=== PATIENT | female | born 1970 | race Caucasian/White ===

== ENCOUNTER 2024-02-16 11:45 | Emergency (ER) | payer OTHER, SELFPAY ==
[2024-02-16 11:47] VITALS: BP 142/106
--- NOTE | 2024-02-16 14:00 | ED.GENMED ---
History of Present Illness
<Nakita Peralta PA-C - Last Filed: 02/17/24 10:34>
General
Chief Complaint: Back Pain
Source: patient
Exam Limitations: none
Time Seen by Provider: 02/16/24 12:47
Nursing documentation reviewed up to this point in time: agreed with
History of Present Illness
History of Present Illness:
53-year-old female with a history of chronic back pain secondary to lumbar disc herniation seen on MRI last year with ongoing lower back pain which causes radiation into her legs and numbness of both feet chronically presents for acute worsening of
her back pain to the left SI joint region radiating down the back of her left leg ever since having an epidural injection last week 5 days ago. Patient says she has seen multiple specialist for her chronic back pain has not had relief with any
treatments like physical therapy, muscle relaxers, steroids, opiates including oxycodone/Tylenol 10�3 25 which she has taken previously. Patient said over the last couple of months she has had worsening of symptoms so she saw a different orthopedic
and received an epidural injection about 2 months ago. She says that that did not help her at all. She went for an appointment last week where she had another epidural but had told him that she had fallen in the days prior to that onto her
buttocks from standing on steps and hit her buttocks and back on the stairs. He did x-rays and showed no fractures. She at that point asked for an MRI which he apparently told her was not indicated at the time. Patient had a second epidural and
says that ever since then she has had worsening pain in her left SI joint down her leg limiting her mobility, limiting her ability to walk, having a lot of pain with changing motion and positions. She says she cannot get comfortable. She is here
both requesting imaging like an MRI to rule out a nerve injury from the epidural and also pain control although she says all pain medications do not help her. She says she has reached out to her Ortho um specialist with [facility] and cannot get
in touch with him but has spoken with the risk control officer who reached out to the doctor and did not offer any additional course of treatment but recommended that she see him in the office next week as already scheduled
She has not had a fever, chills, vomiting, abdominal pain, weakness in the leg, incontinence, urinary retention. Patient is able to get up and go to the bathroom and was able to walk into the emergency department
Past History
<Nakita Peralta PA-C - Last Filed: 02/17/24 10:34>
Past History
ED Past Medical History: HTN and Psychiatric (Anxiety)
ED Past Surgical History: Cholecystectomy, , Orthopedic (Foot surgery X 2, Right knee surgery) and Other (Hernia repair, Tummy tuck)
Social History
Tobacco: Non-smoker
Alcohol: None
Personal:
Living: with family
Employment: Employed
Family History
Family History: Adopted
Review of Systems
<Nakita Peralta PA-C - Last Filed: 02/17/24 10:34>
Review of Systems
Allergies reviewed?: Yes
All Other Systems: Not applicable
Phy Exam
<JT Leahy Last Filed: 02/17/24 10:34>
Physical Exam
Physical Exam:
GENERAL: Alert , in no apparent distress, comfortable at rest
HEAD: NCAT
CARDIAC: Regular rate and rhythm, no edema
LUNGS: Clear breath sounds bilaterally, no acute respiratory distress, no wheezes/rales/rhonchi
ABDOMEN: Soft, without focal tenderness, no r/g, no cvat, normal bowel sounds, nondistended
NEUROLOGICAL: Alert and oriented, no focal neuro deficits, CN intact, 5/5 strength, sensation intact, ambulation slight limp left leg
SKIN: Warm and dry, no skin chnages
MUSCULOSKELETAL: left SI joint tender, buttocks tender on L
full flexion and rotation intact
Back: No midline tenderness, mild dextroscoliosis, slight left paraspinal muscle tenderness on exam, no swelling
negative straight leg raise Bilaterally
PSYCH: Normal and appropriate interaction.
Course
<Nakita Peralta PA-C - Last Filed: 02/17/24 10:34>
Orders/Labs/Results
Orders:
Orders
02/16/24 14:32
Ketorolac [Toradol] 15 mg IV NOW STA
Lidocaine [Lidocaine 4% Patch] 1 patch TOPICAL NOW STA
Apply Lidocaine patch(s) to:: left SI low back
02/16/24 14:36
CT Lumbar Spine W/o Iv Contras Urgent
Comment:
Reason For Exam: severe tender left low back and SI following fall
02/16/24 14:45
Complete Blood Count/With Diff Urgent
Comprehensive Metabolic Panel Urgent
Sed Rate [Erythrocyte Sed Rate] Urgent
02/16/24 15:13
Gabapentin [Neurontin] 300 mg PO NOW STA
Abnormal Lab Results
02/16/24
14:45
Absolute Neuts (auto) 7.1 H 10^3/uL
(1.4-6.5)
Lymphocytes % 19.3 L %
(20.5-51.1)
Glucose 103 H mg/dl
(70-99)
02/16/24 14:45
02/16/24 14:45
Vital Signs
Initial and Last Documented VS:
Initial Vital Signs
Temp Pulse Resp BP
98.1 F 92 16 142/106
02/16/24 11:47 02/16/24 11:47 02/16/24 11:47 02/16/24 11:47
Last Documented Vital Signs
Temp Pulse Resp BP Pulse Ox
98.1 F 57 20 121/76 97
02/16/24 11:47 02/16/24 16:19 02/16/24 16:19 02/16/24 16:19 02/16/24 16:19
<Gaston Huntley DO - Last Filed: 02/16/24 15:13>
Orders/Labs/Results
Orders:
Orders
02/16/24 14:32
Ketorolac [Toradol] 15 mg IV NOW STA
Lidocaine [Lidocaine 4% Patch] 1 patch TOPICAL NOW STA
Apply Lidocaine patch(s) to:: left SI low back
02/16/24 14:36
CT Lumbar Spine W/o Iv Contras Urgent
Comment:
Reason For Exam: severe tender left low back and SI following fall
02/16/24 14:45
Complete Blood Count/With Diff Urgent
Comprehensive Metabolic Panel Urgent
Sed Rate [Erythrocyte Sed Rate] Urgent
02/16/24 15:13
Gabapentin [Neurontin] 300 mg PO NOW STA
Abnormal Lab Results
02/16/24
14:45
Absolute Neuts (auto) 7.1 H 10^3/uL
(1.4-6.5)
Lymphocytes % 19.3 L %
(20.5-51.1)
Glucose 103 H mg/dl
(70-99)
02/16/24 14:45
02/16/24 14:45
Vital Signs
Initial and Last Documented VS:
Initial Vital Signs
Temp Pulse Resp BP
98.1 F 92 16 142/106
02/16/24 11:47 02/16/24 11:47 02/16/24 11:47 02/16/24 11:47
Last Documented Vital Signs
Temp Pulse Resp BP Pulse Ox
98.1 F 57 20 121/76 97
02/16/24 11:47 02/16/24 16:19 02/16/24 16:19 02/16/24 16:19 02/16/24 16:19
<Nakita Peralta PA-C - Last Filed: 02/17/24 10:34>
MDM/Problems Addressed
Differential Diagnosis Includes:
sciatica, lumbar radiculopathy
MDM/Problems Addressed:
53 y/o F with h/o chronic back pain secondray to lumbar radiculopathy
here with acute on chronci pain
had epidural 5 days ago and says ever since then having L lumbar pain radiating into L leg more then befoer the injection
no foot drop, incontinence, retention, fever
she says she has called her speicalist dr. dailey with [facility] but was not able to directly speak with him
she is insistent on MRI imaging for this pain
on exam. afebrile
moves in the bed easily
neg straight leg raise
normal sensation
normal strength
no signs cuada equina
tender L si joint
pt was specifically requesint MRI
pt has no red flags to be concernd about need for urgent MRI (do not suspect discitis, cauda equina)
she requested to speak with ed physician who agreed to CT to r/o fracture sincep t recently fell as well as some screening labs
wbc normal
sed rate normal
ct shows lumbar disc disease/bulge no fx
WHEN COMPARING TO PT'S REPORT SHE HAD PULLED UP FROM LAST YEAR'S MRI, THIS ISEEMS VERY STABLE AND NO SIGNIFICANT CHANGES IDENTIFIED
i spoke directly with dr. dailey regarding this patient
he is aware nataly ther pain has been difficult to control, seemingly nothing really helps
no red flag new symptoms
he did not think this was complication from the epidural
reassured by imaging an dlabs
would at this point, recommend f/u with [facility] which is where he was goign to send her
but can be done as outpatient.
in meantime, i discussed gabapentin, and he agreed to start this as well as steroid burst
d/w ed attending 200 mg tid gabapentin
pt then said she wanted stronger dose but this was not encouraged and would recommend titrating up per her pcp or this ortho doctor.
<Nakita Peralta PA-C - Last Filed: 02/17/24 10:34>
*Critical Care Note
Total Time (30-74mins, 75-104mins- exclusive of procedures): Not Applicable
ED Attending Note
<Nakita Peralta PA-C - Last Filed: 02/17/24 10:34>
-
Portions of this chart may have been created with voice recognition software.� Occasional wrong word or��sound alike� substitutions may have occurred due to the inherent limitations of voice recognition software.
<Gaston Huntley DO - Last Filed: 02/16/24 15:13>
ED Attending Note
Patient seen and examined by attending physician: Yes
I performed the substantive portion of visit, reviewed & personally made and approve the management plan that is documented in note by myself or EWA.: Yes
ED Attending Note:
Patient is a 53-year-old female presents with increasing low back pain with numbness in her feet and now pain radiating into her left lower extremity posteriorly. This is a chronic ongoing issue that started couple years ago. Patient has seen back
specialist for this without improvement. Patient has received epidural x 2 with the last being a couple weeks ago. Patient denies fever or chills. Patient does admit to flushing. Patient states is becoming more more difficult for her to
ambulate. Patient denies any incontinence. Patient has chronic numbness of her feet. Patient had an MRI approximately a year ago which showed large bulging disc at L4-L5. Couple weeks ago after having injection the patient states she fell
straight down on her buttocks while going down the stairs and then went down the steps striking it and since then she has had severe pain. Patient states that she has a high pain tolerance and that Dilaudid does not work, oxycodone 10 mg does not
work and that no pain medication actually works for her. Patient has not seen a chiropractor and does not want to. Patient presented wanting an MRI. Patient states she was sent by her back specialist for an MRI to the ER. It was explained to the
patient that she does not fit criteria for an MRI. Patient does appear to be uncomfortable. Heart is regular and abdomen soft nontender. Patient is able to sit up with her legs tucked underneath her but when lying down and any movement of flexion
of the left lower extremity is greeted with pain and increases with sciatic stretch. Patient's reflexes are diminished bilaterally in the upper and lower extremities. Patient is tender over the left SI joint and into the left buttock. Will check
labs and CT. I believe this is going to be a chronic pain management problem but we will make sure that nothing acutely is going on at this time. I expect the patient to be discharged.
Discharge Plan
Departure
Patient Disposition: Home (Routine Discharge)
Date of Disposition: 02/16/24
Time of Disposition: 16:50
Patient with high blood pressure during this ER visit?: No
Condition: Fair
Covid-19: Not Applicable
Discharge Problem:
Chronic lumbar radiculopathy
Instructions: Radiculopathy (DC)
Prescriptions:
New
gabapentin 100 mg capsule
200 mg PO TID Qty: 30 0RF
prednisone 50 mg tablet
50 mg PO DAILY Qty: 5 0RF
No Action
Effexor XR:
300 mg PO DAILY
diclofenac-misoprostol [Arthrotec 75] 1 EACH tablet,IR,delayed rel,biphasic
1 ea PO BIDPRN PRN (Reason: pain witn food) Qty: 20 0RF
cyclobenzaprine [Flexeril] 10 MG tablet
10 mg PO TIDPRN PRN (Reason: muscle spasm) Qty: 30 0RF
famotidine [Pepcid] 20 mg tablet
20 mg PO BID Qty: 14 0RF
ondansetron 4 mg tablet,disintegrating
4 mg PO Q8H PRN (Reason: nausea and vomiting) 1 Days Qty: 3 0RF
ondansetron 4 mg tablet,disintegrating
4 mg PO Q8H PRN (Reason: nausea and vomiting) Qty: 7 0RF
Referrals:
Edil Dailey MD [Non-Admitting Privileges] - Follow up in 5-7 days
Анна Zhao MD [Active] - Follow up in 1 week (nsg)
Rae Pfeiffer, [Family Provider] - Follow up in 2-3 days
Activity Restrictions/Additional Instructions:
YOUR CAT SCAN SHOWS SIMILAR FINDINGS FROM YOUR MRI
YOU SHOULD FOLLOW P WITH BOTH DR. DAILEY AND ALSO NEUROSURGERY DR. ZHAO AT [facility]
IN THE MEANTIME TRY GABAPENTIN 200 MG 3 TIMES ADAY
THIS COULD MAKE YOU SLEEPY
STOP THE DICLOFENAC AND TAKE PREDNISOEN ONCE A DAY FOR 5 DAYS, THIS IS A STEROID
RETURN FOR ANY EMERGENCIES.
Interventions
Interventions:
*Risk Screen - Suicide Last Done: 02/16/24 11:47
*General Assessment Last Done: 02/16/24 12:34
*Neglect/Abuse Screening Last Done: 02/16/24 12:34
ED- Fall Risk Assessment Last Done: 02/16/24 12:33
*ED COVID-19 Vaccine History Last Done: 02/16/24 12:34
*Nursing Disposition Last Done: 02/16/24 17:21
ED-Musculoskeletal Assessment Last Done: 02/16/24 12:08
Discharge Date and Time
Discharge Date/Time: 02/16/24 17:24
Print Language: PASHTO
[2024-02-16] MEDS: TORADOL 15 MG IV (14:45)
[2024-02-16] MEDS: LIDOCAINE 4% PATCH 1 PATCH TOPICAL (14:45)
[2024-02-16 15:13] LABS: Erythrocyte Sed Rate 11 mm/hour (0-20)
[2024-02-16 15:16] LABS: % Basophils 0.7 % (0-2); % Eosinophils 2.4 % (0-6); % Immature Granulocytes 0.3 % (0-0.5); % Lymphocytes 19.3 % (20.5-51.1); % Monocytes 6.2 % (1.7-9.3); % Neutrophils 71.1 % (42.2-75.2); Absolute Basophils 0.1 10^3/uL (0-0.2); Absolute Eosinophils 0.2 10^3/uL (0-0.7); Absolute Lymphocytes 1.9 10^3/uL (1.2-3.4); Absolute Monocytes 0.6 10^3/uL (0.1-0.6); Absolute Neutrophils 7.1 10^3/uL (1.4-6.5); Hematocrit 42.1 % (37.0-47.0); Hemoglobin 14.7 g/dL (12.0-16.0); Mean Corp Hgb Conc. 34.9 g/dL (33.0-37.0); Mean Corpuscular Hgb 28.8 pg (27.0-31.0); Mean Corpuscular Volume 82.4 fL (81.0-99.0); Mean Platelet Volume 10.2 fL (7.4-10.4); Nucleated Red Blood Cells % 0 %; Platelet Count 306 10^3/uL (130-400); Red Blood Cell Count 5.11 10^6/uL (4.20-5.40); Red Cell Dist. Width 12.8 % (11.5-14.5)
[2024-02-16 15:33] LABS: ALT (SGPT) 15 U/L (0-35); AST (SGOT) 18 U/L (14-36); Albumin 4.2 g/dl (3.5-5.0); Alkaline Phosphatase 93 U/L (38-126); Blood Urea Nitrogen 13 mg/dl (7-17); Calcium 9.9 mg/dl (8.4-10.2); Carbon Dioxide 25 mmol/L (22-30); Chloride 105 mmol/L (98-107); Glucose 103 mg/dl (70-99); Potassium 4.2 mmol/L (3.5-5.1); Sodium 141 mmol/L (135-145); Total Bilirubin 0.7 mg/dl (0.2-1.3); eGFR > 60.00
[2024-02-16] MEDS: NEURONTIN 300 MG PO (15:37)
[2024-02-16 16:19] VITALS: BP 121/76
== END 2024-02-16 17:24 | disposition home or self-care (01) ==
LOC: EMR 11:45
PROVIDERS: EMERGENCY PHYSICIAN Emergency Medicine; FAMILY PHYSICIAN Family Medicine
DX: M51.16 Intervertebral disc disorders with radiculopathy, lumbar region (principal); I10 Essential (primary) hypertension; F41.9 Anxiety disorder, unspecified; Z90.49 Acquired absence of other specified parts of digestive tract
CPT/HCPCS: 99284; 96374; 72131; 80053; 85025; 85652

== ENCOUNTER 2024-04-16 14:51 | Emergency (ER) | payer OTHER, SELFPAY ==
[2024-04-16 15:04] VITALS: BP 146/98
[2024-04-16] MEDS: TORADOL 15 MG IV (16:46)
[2024-04-16] MEDS: NSS 1000 IV (16:48)
[2024-04-16 16:54] LABS: % Basophils 0.9 % (0-2); % Eosinophils 3.9 % (0-6); % Immature Granulocytes 0.2 % (0-0.5); % Lymphocytes 16.9 % (20.5-51.1); % Monocytes 6.9 % (1.7-9.3); % Neutrophils 71.2 % (42.2-75.2); Absolute Basophils 0.1 10^3/uL (0-0.2); Absolute Eosinophils 0.3 10^3/uL (0-0.7); Absolute Lymphocytes 1.4 10^3/uL (1.2-3.4); Absolute Monocytes 0.6 10^3/uL (0.1-0.6); Absolute Neutrophils 5.9 10^3/uL (1.4-6.5); Hematocrit 44.9 % (37.0-47.0); Hemoglobin 15.5 g/dL (12.0-16.0); Mean Corp Hgb Conc. 34.5 g/dL (33.0-37.0); Mean Corpuscular Hgb 29.3 pg (27.0-31.0); Mean Corpuscular Volume 84.9 fL (81.0-99.0); Mean Platelet Volume 10.1 fL (7.4-10.4); Nucleated Red Blood Cells % 0 %; Platelet Count 292 10^3/uL (130-400); Red Blood Cell Count 5.29 10^6/uL (4.20-5.40); Red Cell Dist. Width 12.7 % (11.5-14.5); White Blood Cell Count 8.2 10^3/uL (4.8-10.8)
[2024-04-16 16:57] VITALS: BP 150/88
[2024-04-16 17:07] LABS: ALT (SGPT) 20 U/L (0-35); AST (SGOT) 22 U/L (14-36); Albumin 4.6 g/dl (3.5-5.0); Alkaline Phosphatase 92 U/L (38-126); Blood Urea Nitrogen 7 mg/dl (7-17); Calcium 10.2 mg/dl (8.4-10.2); Carbon Dioxide 28 mmol/L (22-30); Chloride 104 mmol/L (98-107); Glucose 111 mg/dl (70-99); Potassium 4.1 mmol/L (3.5-5.1); Sodium 143 mmol/L (135-145); Total Bilirubin 1.1 mg/dl (0.2-1.3); Total Protein 7.6 g/dl (6.3-8.2); eGFR > 60.00
--- NOTE | 2024-04-16 17:35 | ED.SKININJ ---
HPI-Injury
<JT Aranda Last Filed: 04/16/24 17:42>
General
Chief Complaint: Skin Problem
Source: patient
Exam Limitations: none
Time Seen by Provider: 04/16/24 16:18
History of Present Illness-Injury
Initial Injury comments:
53-year-old female presents with 4 days worth of a painful rash to the right forehead that spreads into the area on the medial aspect of the right eye. No vision change. No fevers. She does note a headache in the area of her rash. No neck pain.
She is healthy otherwise. No other complaints at this time. Initially seen at the urgent care and sent here for further evaluation
Past History
<JT Aranda Last Filed: 04/16/24 17:42>
Past History
ED Past Medical History: HTN and Psychiatric (Anxiety)
ED Past Surgical History: Cholecystectomy, , Orthopedic (Foot surgery X 2, Right knee surgery) and Other (Hernia repair, Tummy tuck)
Social History
Tobacco: Non-smoker
Alcohol: None
Personal:
Living: with family
Employment: Employed
Family History
Family History: Adopted
Phy Exam
<JT Aranda Last Filed: 04/16/24 17:42>
Physical Exam
Physical Exam:
General: Well-appearing female no acute respiratory distress
HEENT: Normocephalic atraumatic
Heart: Regular rate and rhythm no murmurs
Lungs: Clear no wheeze
Skin: Painful vesicular rash right forehead and hairline that spreads into the medial aspect of the right eye.
Eye exam: Right eye was examined with fluorescein stain and Wei lamp. There is no evidence of ulcer on the cornea.
Course
<JT Aranda Last Filed: 04/16/24 17:42>
Orders/Labs/Results
Orders:
Orders
04/16/24 16:27
0.9% Sodium Chloride 1000 ml [Nss] 1,000 ml IV BOLUS
04/16/24 16:35
Ketorolac [Toradol] 15 mg IV NOW STA
04/16/24 16:44
Complete Blood Count/With Diff Urgent
Comprehensive Metabolic Panel Urgent
04/16/24 16:50
Tetracaine HCl [Tetracaine 0.5% Ophthalmic Solution] 1 drop .ROUTE .STK-MED ONE
04/16/24 16:59
Herpes Culture Reflex - Typing Urgent
JOSE LUIS Source: Vesicular Fluid
Specimen Description:
Source:: FACE
04/16/24 17:03
Fluorescein Sodium [Ful-Jaymie] 1 mg .ROUTE .STK-MED ONE
04/16/24 17:25
Valacyclovir HCl [Valtrex] 1,000 mg PO NOW STA
04/16/24 17:34
Butalb/Acetaminophen/Caffeine [Fioricet] 1 tab PO NOW STA
Abnormal Lab Results
04/16/24
16:44
Lymphocytes % 16.9 L %
(20.5-51.1)
Glucose 111 H mg/dl
(70-99)
04/16/24 16:44
04/16/24 16:44
Vital Signs
Initial and Last Documented VS:
Initial Vital Signs
Temp Pulse Resp BP Pulse Ox
98.3 F 116 16 146/98 98
04/16/24 15:04 04/16/24 15:04 04/16/24 15:04 04/16/24 15:04 04/16/24 15:04
Last Documented Vital Signs
Temp Pulse Resp BP Pulse Ox
98.3 F 81 16 150/88 99
04/16/24 15:04 04/16/24 16:57 04/16/24 16:57 04/16/24 16:57 04/16/24 16:57
<Emily Jay MD - Last Filed: 04/16/24 17:47>
Orders/Labs/Results
Orders:
Orders
04/16/24 16:27
0.9% Sodium Chloride 1000 ml [Nss] 1,000 ml IV BOLUS
04/16/24 16:35
Ketorolac [Toradol] 15 mg IV NOW STA
04/16/24 16:44
Complete Blood Count/With Diff Urgent
Comprehensive Metabolic Panel Urgent
04/16/24 16:50
Tetracaine HCl [Tetracaine 0.5% Ophthalmic Solution] 1 drop .ROUTE .STK-MED ONE
04/16/24 16:59
Herpes Culture Reflex - Typing Urgent
JOSE LUIS Source: Vesicular Fluid
Specimen Description:
Source:: FACE
04/16/24 17:03
Fluorescein Sodium [Ful-Jaymie] 1 mg .ROUTE .STK-MED ONE
04/16/24 17:25
Valacyclovir HCl [Valtrex] 1,000 mg PO NOW STA
04/16/24 17:34
Butalb/Acetaminophen/Caffeine [Fioricet] 1 tab PO NOW STA
Abnormal Lab Results
04/16/24
16:44
Lymphocytes % 16.9 L %
(20.5-51.1)
Glucose 111 H mg/dl
(70-99)
04/16/24 16:44
04/16/24 16:44
Vital Signs
Initial and Last Documented VS:
Initial Vital Signs
Temp Pulse Resp BP Pulse Ox
98.3 F 116 16 146/98 98
04/16/24 15:04 04/16/24 15:04 04/16/24 15:04 04/16/24 15:04 04/16/24 15:04
Last Documented Vital Signs
Temp Pulse Resp BP Pulse Ox
98.3 F 81 16 150/88 99
04/16/24 15:04 04/16/24 16:57 04/16/24 16:57 04/16/24 16:57 04/16/24 16:57
<Cory Wilkerson PA-C - Last Filed: 04/16/24 17:42>
MDM/Problems Addressed
Differential Diagnosis Includes:
Painful rash right forehead. Do not suspect bacterial but looks more suspicious herpes zoster. No evidence on exam of eye involvement. Patient is given Toradol for headache fluids labs checked viral culture pending.
White count is normal. No signs of meningitis
Will start on Valtrex and prednisone. Patient has appoint with her eye doctor tomorrow which I advised she keep.
<Cory Wilkerson PA-C - Last Filed: 04/16/24 17:42>
*Critical Care Note
Total Time (30-74mins, 75-104mins- exclusive of procedures): Not Applicable
ED Attending Note
<Cory Wilkerson PA-C - Last Filed: 04/16/24 17:42>
-
Portions of this chart may have been created with voice recognition software.� Occasional wrong word or��sound alike� substitutions may have occurred due to the inherent limitations of voice recognition software.
<Emily Jay MD - Last Filed: 04/16/24 17:47>
ED Attending Note
Patient seen and examined by attending physician: Yes
I performed the substantive portion of visit, reviewed & personally made and approve the management plan that is documented in note by myself or EWA.: Yes
ED Attending Note:
Patient arrives with herpetic lesions of right forehead and right upper eyelid. Symptoms are very typical for shingles zoster. Patient appears nontoxic. There is no meningitis signs. She is breathing comfortably.
Discharge Plan
Departure
Patient Disposition: Home (Routine Discharge)
Date of Disposition: 04/16/24
Time of Disposition: 17:38
Patient with high blood pressure during this ER visit?: No
Discharge Problem:
SHINGLES
Instructions: Shingles
Prescriptions:
New
valacyclovir [Valtrex] 1 gram tablet
1,000 mg PO TID Qty: 30 0RF
prednisone 20 mg tablet
40 mg PO DAILY 5 Days Qty: 10 0RF
No Action
Effexor XR:
300 mg PO DAILY
diclofenac-misoprostol [Arthrotec 75] 1 EACH tablet,IR,delayed rel,biphasic
1 ea PO BIDPRN PRN (Reason: pain witn food) Qty: 20 0RF
cyclobenzaprine [Flexeril] 10 MG tablet
10 mg PO TIDPRN PRN (Reason: muscle spasm) Qty: 30 0RF
famotidine [Pepcid] 20 mg tablet
20 mg PO BID Qty: 14 0RF
ondansetron 4 mg tablet,disintegrating
4 mg PO Q8H PRN (Reason: nausea and vomiting) 1 Days Qty: 3 0RF
ondansetron 4 mg tablet,disintegrating
4 mg PO Q8H PRN (Reason: nausea and vomiting) Qty: 7 0RF
gabapentin 100 mg capsule
200 mg PO TID Qty: 30 0RF
prednisone 50 mg tablet
50 mg PO DAILY Qty: 5 0RF
Referrals:
Rae Pfeiffer DO [Family Provider] -
Activity Restrictions/Additional Instructions:
Use Valtrex as directed. Use prednisone as directed. Return here if needed otherwise follow-up with your eye doctor
Interventions
Interventions:
*Risk Screen - Suicide Last Done: 04/16/24 16:54
*General Assessment Last Done: 04/16/24 16:54
*Neglect/Abuse Screening Last Done: 04/16/24 17:08
ED- Fall Risk Assessment Last Done: 04/16/24 16:57
*ED COVID-19 Vaccine History Last Done: 04/16/24 16:54
ED-Skin Assessment Last Done: 04/16/24 16:04
Discharge Date and Time
Print Language: BOLIVIAN
[2024-04-16] MEDS: VALTREX 1000 MG PO (17:58)
[2024-04-16] MEDS: FIORICET 1 TAB PO (17:58)
--- NOTE | 2024-04-16 18:06 | EDRN ---
While gathering patient's discharge instructions and medications, pt seen standing in doorway, looking at this RN and pointing to IV. Appears irritated and states, 'Are you going to take this out.' This RN then in patient room attempting to
administer medications and asked Alvino COVINGTON to clarify medications. Pt visibly agitated, states she is keeping spouse on speaker phone and proceeds to complain that this RN had a side conversation with co-worker and continues ranting. This
RN exits room uncomfortably. Pt discharged by ED charge nurse. Discharge instructions reviewed with pt extensively by Alvino COVINGTON, Dr Jay, and Gwendolyn CARIAS.
== END 2024-04-16 18:21 | disposition home or self-care (01) ==
LOC: EMR 14:51
PROVIDERS: Physician Assistant; EMERGENCY PHYSICIAN Emergency Medicine; FAMILY PHYSICIAN Family Medicine
DX: B02.9 Zoster without complications (principal)
CPT/HCPCS: 99284; 96374; 96361; 80053; 85025; 87255

== ENCOUNTER → 2024-12-26 13:17 | Outpatient (REF) | payer OTHER, SELFPAY | LOC: EMG 13:17 | PROVIDERS: ATTENDING PHYSICIAN Family Medicine | DX: Z98.890 Other specified postprocedural states (principal); M54.42 Lumbago with sciatica, left side; M54.41 Lumbago with sciatica, right side; G62.9 Polyneuropathy, unspecified; R20.0 Anesthesia of skin | CPT/HCPCS: 95886; 95913 ==

== ENCOUNTER 2025-01-19 13:43 | Emergency (ER) | payer OTHER, SELFPAY ==
[2025-01-19 14:01] VITALS: BP 139/97
[2025-01-19 14:25] LABS: Hematocrit 43.2 % (37.0-47.0); Hemoglobin 14.8 g/dL (12.0-16.0); Mean Corp Hgb Conc. 34.3 g/dL (33.0-37.0); Mean Corpuscular Volume 84.0 fL (81.0-99.0); Nucleated Red Blood Cells % 0 %; Platelet Count 331 10^3/uL (130-400); Red Cell Dist. Width 13.0 % (11.5-14.5)
[2025-01-19 14:32] LABS: INR 0.98; PT 13.3 Sec (11.4-14.6)
[2025-01-19 14:37] LABS: HCG, Serum Qualitative Screen Negative
[2025-01-19 14:45] LABS: ALT (SGPT) 11 U/L (0-35); AST (SGOT) 16 U/L (14-36); Albumin 4.3 g/dl (3.5-5.0); Alkaline Phosphatase 91 U/L (38-126); Blood Urea Nitrogen 9 mg/dl (7-17); Calcium 10.0 mg/dl (8.4-10.2); Carbon Dioxide 23 mmol/L (22-30); Chloride 109 mmol/L (98-107); Glucose 105 mg/dl (70-99); Potassium 4.3 mmol/L (3.5-5.1); Sodium 139 mmol/L (135-145); Total Protein 7.5 g/dl (6.3-8.2); eGFR > 60.00
[2025-01-19 14:51] LABS: Troponin I < 0.012 ng/ml
[2025-01-19 16:52] VITALS: BP 180/109
[2025-01-19] MEDS: TYLENOL 1000 MG PO (19:47)
[2025-01-19] MEDS: ZOFRAN ODT (ORALLY DISINTEGRATING) 4 MG PO (19:48)
[2025-01-19 20:00] VITALS: BP 157/74
--- NOTE | 2025-01-19 20:36 | ED.GENMED ---
History of Present Illness
<Nat Hebert NP - Last Filed: 01/20/25 00:08>
General
Chief Complaint: Cardiac Symptoms
Source: patient
Exam Limitations: none
Time Seen by Provider: 01/19/25 18:08
Nursing documentation reviewed up to this point in time: agreed with
History of Present Illness
History of Present Illness:
Patient to ED with complaint of headache, dizziness, chest pain. Symptoms started this AM. Denies fever/chills, recent illness. +nausea, no vomiting. States she took her BP this AM after symptoms started and noted that her BP was elevated.
Advised by PCP to come to ED.Currently taking Metoprolol 25mg QPM. She was on Amlodipine for many years. PCP discontinued Amlodipine approx 5 months ago because 'blood pressure was good'. Placed on Metoprolol at that time but she states ist to
reduce her heart rate, not to treat BP. Brought self to ED for eval. She also reports falling a few weeks ago and injuring her left shoulder, would like an MrI tonight.
Past History
<Nat Hebert PERSONAL LINES ADVISOR - Last Filed: 01/20/25 00:08>
Past History
ED Past Medical History: HTN and Psychiatric (Anxiety)
ED Past Surgical History: Cholecystectomy, , Orthopedic (Foot surgery X 2, Right knee surgery) and Other (Hernia repair, Tummy tuck)
Social History
Tobacco: Non-smoker
Alcohol: None
Personal:
Living: with family
Employment: Employed
Family History
Family History: Adopted
Review of Systems
<Nat Hebert PERSONAL LINES ADVISOR - Last Filed: 01/20/25 00:08>
Review of Systems
Allergies reviewed?: Yes
All Other Systems: ROS reviewed and negative except as documented in HPI and ROS
Constitutional: Reports no symptoms
EENT: Reports no symptoms
Respiratory: Reports no symptoms
Cardiac: Reports chest pain (No radiation of pain. no vomiting, diarrhea)
ABD/GI: Reports no symptoms
: Reports no symptoms
Musculoskeletal: Reports joint pain (Left shoulder pain. Fell a few weeks ago injuring her shoulder.)
Skin: Reports no symptoms
Neurological: Reports dizzy
Psychiatric: Reports no symptoms
Phy Exam
<Nat Hebert PERSONAL LINES ADVISOR - Last Filed: 01/20/25 00:08>
General Physical Exam
General Presentation: well appearing and no apparent distress
General age: appears stated age
General Skin: warm and dry
General Habitus: normal
Cardiovascular Exam
Cardiovascular Exam: regular rate/rhythm and no edema
Pulmonary Exam
Pulmonary Exam: lungs clear and no respiratory distress
Neurological Exam
Neurological Exam: alert, oriented x3, CN II-XII intact, no motor deficits, no sensory deficits and speech normal
Musculoskeletal Exam
Musculoskeletal Exam: full ROM and neuro vasc intact
Skin Exam
Skin Exam: normal color, warm/dry, no rash and no petechia
Psychiatric Exam
Psychiatric Exam: normal mood/affect
Course
<Nat Hebert PERSONAL LINES ADVISOR - Last Filed: 01/20/25 00:08>
Orders/Labs/Results
Orders:
Orders
01/19/25
Electrocardiogram (*1) Stat
Comment: DONE
01/19/25 14:05
CT Head W/o Iv Contrast Urgent
Comment:
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
01/19/25 14:06
Test Result ONCE
01/19/25 14:15
Complete Blood Count/With Diff Urgent
Comprehensive Metabolic Panel Urgent
HCG, Serum Qualitative Screen Urgent
Prothrombin Time Urgent
Troponin I Urgent
01/19/25 18:30
Ondansetron Orally Disint [Zofran Odt (Orally Disintegrating)] 4 mg PO NOW STA
Shoulder, Left, Trauma CR [CR Shoulder, Trauma - Left] Urgent
Comment:
Reason For Exam: fall 2 weeks ago, ongoing pain
01/19/25 19:27
Acetaminophen [Tylenol] 1,000 mg PO NOW STA
01/19/25 21:36
Troponin I Urgent
Abnormal Lab Results
01/19/25
14:15
Eosinophils % 7.4 H %
(0-6)
Chloride 109 H mmol/L
(98-107)
Glucose 105 H mg/dl
(70-99)
01/19/25 14:15
01/19/25 14:15
Vital Signs
Initial and Last Documented VS:
Initial Vital Signs
Temp Pulse Resp BP Pulse Ox
97.6 F 77 18 139/97 98
01/19/25 14:01 01/19/25 14:01 01/19/25 14:01 01/19/25 14:01 01/19/25 14:01
Last Documented Vital Signs
Temp Pulse Resp BP Pulse Ox
97.6 F 76 20 149/80 98
01/19/25 14:01 01/19/25 20:00 01/19/25 20:00 01/19/25 22:30 01/19/25 22:22
<Sanket Sandoval MD - Last Filed: 01/19/25 22:40>
Orders/Labs/Results
Orders:
Orders
01/19/25
Electrocardiogram (*1) Stat
Comment: DONE
01/19/25 14:05
CT Head W/o Iv Contrast Urgent
Comment:
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
01/19/25 14:06
Test Result ONCE
01/19/25 14:15
Complete Blood Count/With Diff Urgent
Comprehensive Metabolic Panel Urgent
HCG, Serum Qualitative Screen Urgent
Prothrombin Time Urgent
Troponin I Urgent
01/19/25 18:30
Ondansetron Orally Disint [Zofran Odt (Orally Disintegrating)] 4 mg PO NOW STA
Shoulder, Left, Trauma CR [CR Shoulder, Trauma - Left] Urgent
Comment:
Reason For Exam: fall 2 weeks ago, ongoing pain
01/19/25 19:27
Acetaminophen [Tylenol] 1,000 mg PO NOW STA
01/19/25 21:36
Troponin I Urgent
Abnormal Lab Results
01/19/25
14:15
Eosinophils % 7.4 H %
(0-6)
Chloride 109 H mmol/L
(98-107)
Glucose 105 H mg/dl
(70-99)
01/19/25 14:15
01/19/25 14:15
Vital Signs
Initial and Last Documented VS:
Initial Vital Signs
Temp Pulse Resp BP Pulse Ox
97.6 F 77 18 139/97 98
01/19/25 14:01 01/19/25 14:01 01/19/25 14:01 01/19/25 14:01 01/19/25 14:01
Last Documented Vital Signs
Temp Pulse Resp BP Pulse Ox
97.6 F 76 20 149/80 98
01/19/25 14:01 01/19/25 20:00 01/19/25 20:00 01/19/25 22:30 01/19/25 22:22
<Nat Hebert NP - Last Filed: 01/20/25 00:08>
*Pulse Oximetry
SaO2: 98
Oxygen Mode of Delivery: Room air
Patient hypoxic: no
*Critical Care Note
Total Time (30-74mins, 75-104mins- exclusive of procedures): Not Applicable
<Nat Hebert NP - Last Filed: 01/20/25 00:08>
Update Note
Update Note:
Patient to ED with complaint of headache, dizziness, chest pain, elevated BP. BP in ED initially 170's/low 100's. Given PM dose of metoprolol in ED. Patient requested to take her own metoprolol. BP decreased to 140's/80-90. Labs reviewed, no
concerning findings. EKG NSR, troponin neg x 2. No concerning findings on physical exam. Neurological exam normal. CT head neg for acute findings. Left shoulder xray neg for fracture or dislocation. Discussed results with her. No further
testing required tonight, Recommend discharge home and close follow up with PCP. SHe has multiple complaints: feeling that she has been mistreated by every staff member, wanting an MRI of her left shoulder - she feels that this test can be
obtained in the ED, wanting to be admitted but not to observation. She feels the attending provider should document to support medical necessity and not observation. Requesting that I document on her discharge paperwork that nothing will happen to
her after leaving the ED tonight. I spent a long time reviewing her test results with her, reviewing her exam findings with her and she continued to negate this. I requested Dr. Sandoval consult with her and he spent a great deal of time speaking
with her. Despite all of the care and attention she was provided she continued to find fault with everyone involved in her care.
ED Attending Note
<Nat Hebert NP - Last Filed: 01/20/25 00:08>
-
Portions of this chart may have been created with voice recognition software.� Occasional wrong word or��sound alike� substitutions may have occurred due to the inherent limitations of voice recognition software.
<Sanket Sandoval MD - Last Filed: 01/19/25 22:40>
ED Attending Note
Patient seen and examined by attending physician: Yes
ED Attending Note:
I have seen and evaluated the patient with a [id number] encounter. I have spoken to the advance practicer provider and involved in the medical history, the physical exam, medical decision making.
Evaluation and management service: agree unless noted differently below.
Results interpretation: agree unless noted differently below.
Focused HPI: 54-year-old female presents to the emergency room for evaluation of dizziness and hypertension. Patient reports that earlier today she started to notice she was feeling very dizzy. She says she laid down on the bed to wait for
symptoms to pass but they were not improving and she felt as if she might pass out. She says that she was having some other associated symptoms including some chest discomfort, nausea, headache. She says she checked her blood pressure and it was
very elevated (she says in the 150s) and she came to the emergency room to be evaluated. She does take metoprolol but apparently takes this for more heart rate control rather than blood pressure. During assessment patient also notes she has been
having some left shoulder pain that primary doctor has attributed to rotator cuff injury. She says she is supposed to get an MRI but has not yet received it yet.
Physical exam: Awake and alert not in distress. Vital signs reviewed from ER visit today�blood pressure peaked at 180/109 but since then has significantly improved on my assessment blood pressure 150s over 70s. She has no cardiac rubs gallops or
murmurs on auscultation, regular rate and rhythm. Her lungs sound clear to auscultation. Pupils are equal round reactive to light bilaterally, extraocular movements are intact. She has some pain on proximal strength testing of the left shoulder
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
Medical Decision Makin-year-old female presents for evaluation of dizziness/lightheadedness, chest discomfort and other associated symptoms as described above. She says she has had associated hypertension which is unusual for her. Her blood
pressure is mildly elevated here as described above. Rest of vitals are acceptable. Labs and imaging reviewed: CBC and CMP no clinically significant abnormalities. EKG shows sinus rhythm with no acute ischemic changes. Her initial troponin is
undetectable�repeat pending. CT head shows no acute abnormalities. We did check an x-ray of her shoulder as she has been having pain without any imaging thus far�no acute abnormalities noted on my review. Patient has her medications with her,
instructed to take her nighttime dose of metoprolol a bit early. Will continue to monitor pending repeat troponin.
Repeat troponin undetectable. Blood pressure essentially normalized 147/77. Stable for discharge advised that she should follow-up with her primary doctor this week. Advised to return with any issues.
Discharge Plan
Departure
Patient Disposition: Home (Routine Discharge)
Date of Disposition: 01/19/25
Time of Disposition: 22:22
Patient with high blood pressure during this ER visit?: No
Condition: Good
Covid-19: Not Applicable
Discharge Problem:
Chest pain
Instructions: Chest Pain (DC), BLOOD PRESSURE
Prescriptions:
No Action
Effexor XR:
300 mg PO DAILY
diclofenac-misoprostol [Arthrotec 75] 1 EACH tablet,IR,delayed rel,biphasic
1 ea PO BIDPRN PRN (Reason: pain witn food) Qty: 20 0RF
cyclobenzaprine [Flexeril] 10 MG tablet
10 mg PO TIDPRN PRN (Reason: muscle spasm) Qty: 30 0RF
famotidine [Pepcid] 20 mg tablet
20 mg PO BID Qty: 14 0RF
ondansetron 4 mg tablet,disintegrating
4 mg PO Q8H PRN (Reason: nausea and vomiting) 1 Days Qty: 3 0RF
ondansetron 4 mg tablet,disintegrating
4 mg PO Q8H PRN (Reason: nausea and vomiting) Qty: 7 0RF
gabapentin 100 mg capsule
200 mg PO TID Qty: 30 0RF
prednisone 50 mg tablet
50 mg PO DAILY Qty: 5 0RF
valacyclovir [Valtrex] 1 gram tablet
1,000 mg PO TID Qty: 30 0RF
prednisone 20 mg tablet
40 mg PO DAILY 5 Days Qty: 10 0RF
[id number] [Fioricet] 50-300-40 mg capsule
1 cap PO TID PRN (Reason: Pain) Qty: 10 0RF
Referrals:
Rae Pfeiffer DO [Family Provider, Family Practice]
Activity Restrictions/Additional Instructions:
Return to the emergency department immediately for any changes in/worsening of your symptoms.
Interventions
Interventions:
*Risk Screen - Suicide Last Done: 01/19/25 14:01
*General Assessment Last Done: 01/19/25 14:01
*Neglect/Abuse Screening Last Done: 01/19/25 14:01
*ED- Fall Risk Assessment Last Done: 01/19/25 22:22
*ED COVID-19 Vaccine History Last Done: 01/19/25 22:22
*Nursing Disposition Last Done: 01/19/25 22:58
ED- Pulmonary Assessment Last Done: 01/19/25 19:56
ED- Cardiac Assessment Last Done: 01/19/25 19:56
Discharge Date and Time
Print Language: LEBANESE
Musculoskeletal Injury Exam
<Nat Hebert NP - Last Filed: 01/20/25 00:08>
Musculoskeletal Injury Exam
Left Shoulder:
Pain with Movement?: Moderate
Tender to palpation?: Moderate
Soft tissue swelling?: None
External deformity and angulation?: None
Joint effusion?: None
Contusion?: None
Hematoma-local bleeding into tissue?: None
Strain- Sprain- Tear (Connective tissue injury)?: Moderate
Crepitus with movement?: No
Joint instability?: No
Malalignment/deformity?: No
Range of motion: Limited
Distal skin color and temperature: normal-warm & good color
Capillary Refill: normal
Normal distal neurovascular exam?: Yes
Peripheral Pulses: radial (left): 3+
[2025-01-19 21:38] VITALS: BP 157/87
[2025-01-19 22:00] VITALS: BP 147/77
[2025-01-19 22:20] LABS: Troponin I < 0.012 ng/ml
[2025-01-19 22:30] VITALS: BP 149/80
== END 2025-01-19 23:00 | disposition home or self-care (01) ==
LOC: EMR 13:43
PROVIDERS: Emergency Medicine; Nurse Practitioner; EMERGENCY PHYSICIAN Emergency Medicine; FAMILY PHYSICIAN Family Medicine
DX: R07.9 Chest pain, unspecified (principal); I10 Essential (primary) hypertension; M25.512 Pain in left shoulder; W19.XXXA Unspecified fall, initial encounter; Z79.899 Other long term (current) drug therapy
CPT/HCPCS: 99285; 70450; 73030; 80053; 84484; 84703; 85025; 85610; 93005